=== PATIENT | male | born 1995 | race Caucasian/White ===

== ENCOUNTER 2016-09-13 09:12 | Day surgery (SDC) | payer OTHER ==
[~2016-09-13 09:12] MED LIST: CIPROFLOXACIN HCL 500 MG TABLET PO PRN; DEXAMETHASONE SOD PHOSPHATE INJ 4 MG/1 ML VIAL ONE; LACTATED RINGERS 1000 ML IV PRN; LIDOCAINE 0.5% INJ-PF (5 MG/ML) 50 ML SDV SUBCUT PRN; LIDOCAINE 2% INJ-PF (20 MG/ML) 10 ML AMPUL ONE; ONDANSETRON HCL INJ/PF 4 MG/2 ML SDV ONE; SUCCINYLCHOLINE CHLORIDE INJ 200 MG/10 ML VIAL ONE
[2016-09-13] MEDS ORDERED: MIDAZOLAM 2 MG/2 ML INJ ONE (14:01)
[2016-09-13] MEDS ORDERED: FENTANYL CITRATE INJ/PF 100 MCG/2 ML AMPUL ONE (14:01)
[2016-09-13] MEDS ORDERED: PROPOFOL INJ 200 MG/20 ML VIAL IV ONE (14:01)
[2016-09-13] MEDS ORDERED: HYDROMORPHONE HCL INJ/PF 2 MG/ML AMPULE ONE (14:01)
[2016-09-13] MEDS ORDERED: CIPROFLOXACIN 400 MG/D5W RTU 400 MG/200 ML RTUPB IV ONE (14:18)
[2016-09-13] MEDS ORDERED: DIPHENHYDRAMINE HCL 50 MG/ML VIAL IV PRN (15:36)
[2016-09-13] MEDS ORDERED: FENTANYL CITRATE INJ/PF 100 MCG/2 ML AMPUL IV PRN ×3 (15:36)
[2016-09-13] MEDS ORDERED: MEPERIDINE HCL/PF INJ 25 MG/1 ML DISP.SYRIN IV PRN (15:36)
[2016-09-13] MEDS ORDERED: PROMETHAZINE HCL INJ 25 MG/1 ML VIAL IV PRN (15:36)
--- NOTE | 2016-09-13 15:38 | OPERATIVE REPORT E ---
Operative Report NAME: NEISHA RENE : 1995 AGE: 20Y DATE OF SURGERY: 09/13/2016 ROOM: INDICATIONS FOR PROCEDURE: The patient is a 20-year-old male with history of right-sided ureteral calculus. He was counseled on the risks, benefits, and side effects of a right-sided ureteroscopy with lithotripsy and stent placement and consented to proceed. PREOPERATIVE DIAGNOSIS: Right ureteral calculus. POSTOPERATIVE DIAGNOSIS: Right ureteral calculus. OPERATION PERFORMED: 1. Cystoscopy. 2. Attempted right ureteroscopy. 3. Right ureteral stent placement. SURGEON: NELLIE PARHAM D.O. ORDER EXPEDITER: None. ANESTHESIA: General. INTRAVENOUS FLUIDS: 600 mL lactated Ringer. URINE OUTPUT: Not recorded. ESTIMATED BLOOD LOSS: Less than 1 mL. FINDINGS: Inability to access right ureteral orifice. SPECIMENS: None. IMPLANTS: A 6-[place] x 26-cm ureteral stent in the right ureter. COMPLICATIONS: None. DESCRIPTION OF PROCEDURE: The patient was met in the preop holding area. Risks, benefits, and side effects of a right-sided ureteroscopy and lithotripsy with stent placement were again reviewed with the patient, who consented to proceed. He was brought to the operative theatre and placed on the table in a supine position where general anesthesia was induced. He was then placed in dorsal lithotomy position and sterilely prepped and draped in the usual fashion. A time out was performed to verify patient, proper position, proper laterality being the right, and preop antibiotics administered. With all in agreement we proceeded. A 21-[place] rigid cystoscope was placed through the urethra to the level of the bladder and the bladder was drained. An open-ended catheter was placed up the right ureteral orifice and then a retrograde pyelogram was performed. This showed a filling defect in the mid to distal ureter consistent with a 6-mm stone. We then passed a Sensor wire to the level of the renal pelvis under fluoroscopic guidance. The open-ended catheter was removed, leaving the wire in place. We then attempted right ureteroscopy. We were unable to access the ureter. We tried to use 2 wires and then to slightly dilate the ureter with the inner sheath of a ureteral access sheath; however, we were unable to access the ureter, and at this point it was decided to place a stent in the ureteral orifice to dilate prior to attempting ureteroscopy. A 6-[place] x 26-cm ureteral stent was placed over the wire to the level of the renal pelvis under fluoroscopic guidance and then slowly removed with a good curl of stent in the right renal pelvis fluoroscopically and then fully removed with a good curl of stent in the bladder cystoscopically. The *------* wires were removed. The bladder was then drained and the cystoscope removed. The patient tolerated the procedure well. He was awakened and taken to the PACU in good condition. All instrument, needle and sponge counts were correct. DICTATING PHYSICIAN: NELLIE PARHAM D.O. [id number] PHY#: [id number] ID: [id number] JOB#: [id number] ACCT: [id number] cc:NELLIE PARHAM D.O. >
[2016-09-13] MEDS ORDERED: ONDANSETRON HCL INJ/PF 4 MG/2 ML SDV IV PRN (15:40)
[2016-09-13] MEDS ORDERED: PHENAZOPYRIDINE HCL 200 MG TABLET PO PRN (15:41)
[2016-09-13] MEDS ORDERED: OXYBUTYNIN CHLORIDE 5 MG TABLET PO PRN (15:42)
[2016-09-13] MEDS ORDERED: OXYCODONE-ACETAMINOPHEN 5-325 MG TABLET PO PRN (15:49)
[2016-09-13] MEDS ORDERED: HYDROMORPHONE HCL INJ/PF 2 MG/ML AMPULE IV PRN (15:49)
[2016-09-13 17:26] VITALS: BP 121/79
== END 2016-09-13 17:15 | disposition home or self-care (01) ==
LOC: OROUT 09:12
PROVIDERS: ATTEND Surgery
PROC: 0T768DZ Dilation of Right Ureter with Intraluminal Device, Via Natural or Artificial Opening Endoscopic (ICD-10-PCS; principal; 2016-09-13 11:30)
DX: N20.1 Calculus of ureter (principal); Z87.442 Personal history of urinary calculi
CPT/HCPCS: 74420; 52332; C1769; C1758; C2617; Q9967; J2250; J1100; J3010; J1170; J0330; J2405; J2704; J0744; J3490; 910